=== PATIENT | female | born 1980 | race Caucasian/White ===

== ENCOUNTER 2022-12-04 15:09 | Observation (INO) | payer OTHER, SELFPAY ==
--- NOTE | ~2022-12-04 | MR_ITS ---
MRI of the abdomen: Clinical indication: Abnormal LFTs, common bile duct stone. Technique: Coronal SSFSE ARC, WATER:coronal LAVA-FLEX, Coronal 2D FIESTA FatSat, Axial SSFSE BH ARC, Axial 3D DualEcho BH, Axial SSFSE-IR, Axial DWI b=500, Axial 2D FIESTA FatSat, pre and dynamic postco ntrast Axial LAVA ARC, postcontrast Coronal In and Opposed phase LAVA FLEX. Following intravenous adm inistration of 15 cc MultiHance gadolinium, T1-weighted fat-sat imaging was performed in the axial an d coronal planes. Correlation made with CT scan dated 12/04/2022. Findings: Large gallstone is present. No gallbladder wall thickening. The common bile duct is normal in course and caliber. No filling defects are seen within the CBD. No evidence of intrahepatic biliar y ductal dilatation. The pancreatic duct is normal in size. Liver, spleen, pancreas, adrenals, and left kidney appear normal. Extensive parenchymal scarring of t he right kidney noted. The aorta and the paraaortic regions appear normal. No abnormal postcontrast enhancement seen. Impression: Cholelithiasis. No evidence of choledocholithiasis. No intrahepatic or extrahepatic biliary dilatatio n. No definite imaging evidence for acute cholecystitis. Extensive parenchymal scarring of the right kidney noted, as seen on recent CT. Reviewed, dictated and finalized at [facility] [place]. HAULER Impression: Cholelithiasis. No evidence of choledocholithiasis. No intrahepatic or extrahep atic biliary dilatation. No definite imaging evidence for acute cholecystitis. Extensive parenchymal scarring of the right kidney noted, as seen on recent CT.
--- NOTE | ~2022-12-04 | CT_ITS ---
CT Abdomen and Pelvis with contrast. History: Epigastric pain. Spiral CT of the abdomen and pelvis was performed after the administration of intravenous contrast. 1 00 cc of Omnipaque 350 was administered intravenously without complication. Dose reduction technique was used on this scan by utilizing automated exposure control and iterative reconstruction technique. The dose-length product (DLP) was 469.69 mGy-cm. Findings: Scans through the lung bases demonstrate mild atelectatic change. There is mild periportal edema. The liver, spleen, pancreas, adrenals and left kidney are otherwise w ithin normal limits. 2.5 cm gallstone present. There is extensive cortical scarring of the right kidn ey. No evidence of aortic aneurysm. No lymphadenopathy is seen. There is no evidence of bowel obstruction. There is no evidence to suggest acute appendicitis or dive rticulitis. Images through the pelvis were performed. Urinary bladder unremarkable. No pelvic mass seen. No ascit es. No ascites is seen. Impression: Cholelithiasis. Periportal edema, nonspecific. Reviewed, dictated and finalized at [facility]. [employer] AUD[employer] ADVISOR Impression: Cholelithiasis. Periportal edema, nonspecific.
[2022-12-04 15:12] VITALS: BP 135/79; PULSE 64; RESP 16; TEMP 36.6; O2SAT 100
--- NOTE | 2022-12-04 15:27 | ED.ABDPAIN ---
HPI - Abdominal Pain General Chief Complaint: Abdominal Pain <NADEEM Bai Last Filed: 12/04/22 16:36> Stated Complaint: abdominal pain <NADEEM Bai Last Filed: 12/04/22 16:36> Time Seen by Provider: 12/04/22 15:19 <NADEEM Bai Last Filed: 12/04/22 16:36> History of Present Illness HPI narrative: 42 year old previously healthy female here for evaluation of epigastric pain x 12 hours. Patient states that the pain has been present constantly, described as a burning sensation. Pain remains in her epigastric region and does not radiate. She attempted Tums and Pepto-Bismol without relief of her symptoms. Reports nausea but no vomiting, chest pain, shortness of breath, fevers or chills, diarrhea or constipation. She states that she usually eats a healthy diet but last night she had mini burgers and hot wings. No history of abdominal surgeries. She lives a very healthy active lifestyle, denies exertional component to pain. <NADEEM Bai Last Filed: 12/04/22 16:36> Related Data Allergies/Adverse Reactions: Allergies Allergy/AdvReac Type Severity Reaction Status Date / Time No Known Allergies Allergy Mild Unverified 12/04/22 15:19 <NADEEM Bai Last Filed: 12/04/22 16:36> Review of Systems Review of Systems: Gen.: Denies fevers or chills Eyes: Denies eye pain or visual change ENT: Denies congestion Respiratory: Denies shortness of breath or cough CV: Denies chest pain or palpitations GI: Reports abdominal pain and nausea. Denies emesis or diarrhea denies burning, urgency, frequency or hematuria Musculoskeletal: Denies back pain or muscle pain Neuro: Denies numbness, tingling, weakness or focal weakness Skin: Denies rash Except as documented, all other systems reviewed and negative <NADEEM Bai Last Filed: 12/04/22 16:36> Exam Narrative: APPEARANCE: Well appearing, no pain in distress, well-nourished. Head: Normocephalic and atraumatic. EYES: PERRLA/EOMI, conjunctivae clear NOSE: No nasal drainage EARS: External ear normal in appearance THROAT: Oropharynx is clear. Mucous membranes are moist. NECK: Supple. No adenopathy, no masses. RESPIRATORY: Airway patent, respirations nonlabored. Clear to auscultation bilaterally, no rales, rhonchi, wheezing. CARDIOVASCULAR: Regular rate and rhythm without murmurs, rubs, or gallops. ABDOMINAL: Slight tenderness to palpation in the epigastric region and right upper quadrant with no rebound tenderness or guarding. Normoactive bowel sounds. MUSCULOSKELETAL: Extremities are warm and well-perfused. Moves all extremities well. No edema. NEURO: Normal speech. No focal neurologic deficits. SKIN: Skin is warm and dry. No rashes. PSYCHIATRIC: Normal affect/mood. <Hali Fernandes PA-C - Last Filed: 12/04/22 16:36> Course CLIENT LIAISON/PA Physician Supervision For this patient encounter, I reviewed the CLIENT LIAISON or PA documentation, treatment plan, and medical decision making; and I had [id number] time with this patient. <Jacky Mcdaniels MD - Last Filed: 12/04/22 16:35> Vital Signs Vital signs: Vital Signs Temperature 36.6 C 12/04/22 15:12 Pulse Rate 64 12/04/22 15:12 Respiratory Rate 16 12/04/22 15:12 Blood Pressure 135/79 12/04/22 15:12 Pulse Oximetry 100 12/04/22 15:12 Oxygen Delivery Room Air 12/04/22 15:12 Temperature 36.6 C 12/04/22 15:12 Pulse Rate 64 12/04/22 15:12 Respiratory Rate 16 12/04/22 15:12 Blood Pressure 135/79 12/04/22 15:12 Pulse Oximetry 100 12/04/22 15:12 Oxygen Delivery Room Air 12/04/22 15:12 <Hali Fernandes PA-C - Last Filed: 12/04/22 16:36> Vital Signs Temperature 36.6 C 12/04/22 15:12 Pulse Rate 64 12/04/22 15:12 Respiratory Rate 16 12/04/22 15:12 Blood Pressure 135/79 12/04/22 15:12 Pulse Oximetry 100 12/04/22 15:12 Oxygen Delivery Room Air
[2022-12-04 15:29] LABS: Basophils Absolute Auto 0.1 K/mm3 (0.0-0.1); Basophils Percent Auto 0.6 % (0.2-1.2); Eosinophils Absolute Auto 0.1 K/mm3 (0-0.3); Eosinophils Percent Auto 0.6 % (0-4.4); Hematocrit 42.3 % (37.0-47.0); Immature Granulocyte Absolute 0.03 K/mm3 (0.00-0.031); Immature Granulocyte Percent A 0.3 % (0-0.5); Lymphocytes Absolute Auto 1.35 K/mm3 (0.9-3.2); Lymphocytes Percent Auto 14.3 % (18.3-44.2); Mean Corpuscular HGB Conc 33.1 g/dl (32-36); Mean Corpuscular Hemoglobin 30.8 pg (26-34); Mean Platelet Volume 10.1 fl (7.4-10.4); Monocytes Absolute Auto 0.8 K/mm3 (0.1-0.6); Monocytes Percent Auto 8.5 % (2.6-8.5); Neutrophils Absolute Auto 7.1 K/mm3 (1.3-6.7); Neutrophils Percent Auto 75.7 % (45.5-73.1); Platelet Count Result 316 k/mm3 (150-375); Red Blood Count 4.55 M/mm3 (4.2-5.4); Red Cell Distribution Width 12.6 % (11.5-14.5); White Blood Count 9.4 K/mm3 (4.5-10.0)
[2022-12-04] MEDS: LACTATED RINGERS 1,000 ML 999 ML IV CONT (15:34)
[2022-12-04] MEDS: ONDANSETRON INJ 4 MG/2 ML VIAL IV PUSH (15:35)
[2022-12-04] MEDS: FAMOTIDINE 20 MG/2 ML VIAL IV PUSH (15:35)
[2022-12-04 15:43] LABS: Alanine Aminotransferase 533 U/L (6-35); Albumin Level 4.8 g/dL (3.5-5.1); Alkaline Phosphatase 95 U/L (38-126); Anion Gap 5 mmol/L (8-16); Blood Urea Nitrogen 11 mg/dL (7-17); Calcium 9.4 mg/dL (8.4-10.2); Carbon Dioxide 28 mmol/L (22-30); Chloride 103 mmol/L (98-107); Estimated Glomerular Filt Rate > 60; Glucose 119 mg/dL (65-110); Lipase 170 U/L (23-300); Potassium 3.8 mmol/L (3.4-5.0); Sodium 136 mmol/L (137-145)
[2022-12-04 15:53] LABS: Aspartate Amino Transferase 1062 U/L (14-36)
[2022-12-04 15:57] LABS: Appearance Urine Slightly Cloudy (Clear); Bilirubin Urine 2+ (Negative); Blood Urine Negative (Negative); Color Urine Yellow (Yellow); Glucose Urine UA Negative (Negative); Ketones Urine Trace mg/dL (Negative); Leukocyte Esterase Ur 1+ LEU/UL (Negative); Nitrate Urine Negative (Negative); Protein Urine 1+ mg/dL (Negative); pH Urine 7.5 (5.0-9.0)
[2022-12-04 16:01] LABS: Bacteria Urine Trace /hpf; Mucus Urine Rare /lpf; Squamous Epithelial Cell Urine Many /hpf (Few)
[2022-12-04 16:13] LABS: Add Urine Microscopic? YES
[2022-12-04 16:44] LABS: Influenza A QL RT-PCR Negative (Negative); Influenza B QL RT-PCR Negative (Negative); SARS-CoV-2 RNA PCR Negative
[2022-12-04] MEDS: MORPHINE SULFATE (*CRX) 4 MG/ML INJ IV PUSH (16:50)
[2022-12-04 17:14] VITALS: BP 140/87; PULSE 67; RESP 18; O2SAT 100
[2022-12-04 17:22] VITALS: BP 139/86; PULSE 72; RESP 18; O2SAT 98
--- NOTE | 2022-12-04 18:08 | ADMGEN ---
This patient, Sharda Arnold, was admitted to [facility] Surg Room 315-02. Patient/family oriented to hospital policies and general routines including ID bracelet, bed and alarms, visiting hours, pain management, procedures, bathroom and other care routines, personal items, smoking policy, room service/diet, and visiting hours. Information on how to activate the Rapid Response Team has been discussed. Patient/Family are encouraged to report perceived risks to care and to ask questions if they do not understand what they are told or what they should do.
[2022-12-04] MEDS: LACTATED RINGERS 1,000 ML 150 ML IV CONT (18:17)
--- NOTE | 2022-12-04 18:43 | PM.IMHP ---
H&P: HPI History of Present Illness Date/Time: 12/04/22 18:43 Chief Complaint: Right upper quadrant and epigastric abdominal pain Narrative: Patient is an otherwise healthy 42-year-old female who presents with a 12 hr history of epigastric and right upper quadrant abdominal pain that started after ate chicken wings and other fatty foods. She denies radiation of the pain to her back or any nausea or vomiting. She has not had any abdominal bloating or loose stools after eating. She is not had pain like this in the past. Workup in the emergency room showed a normal white blood cell count and 9400 however her liver enzymes were elevated with a total bilirubin of 2.0 and elevated AST and ALT. CT scan of the abdomen and pelvis showed a distended gallbladder with some mild gallbladder wall thickening and a 2centimeter gallstone within the lower portion of the gallbladder. No evidence of common bile duct dilatation was noted. Review of Systems Review of Systems: The remainder of the review of systems to include constitutional, HEENT, cardiovascular, respiratory, GI, , integumentary, musculoskeletal, endocrine, immunologic, hematologic, psychiatric, and neurologic are all negative except for which is mentioned above in the HPI. [facility] Family History Family History Mother Hypertension Father Hypertension Social History Social History Smoking status: Never smoker Alcohol intake: current Drinks per week: 1 Substance use: never Lack of Transportation: No Lack of Food: Never True Current Housing: I Have Housing Concerned About Future Housing: No Difficulty Paying Gas/Electric Bills: No Difficulty Paying for Meds: No Currently Unemployed: No Education: High School Diploma/GED Difficulty w/ Childcare or Family Care: No Spiritual care concerns: No Meds Home Medications and Allergies Home Medications Medication Instructions Recorded Confirmed Type No Home Medications 12/04/22 12/04/22 History Allergies Allergy/AdvReac Type Severity Reaction Status Date / Time No Known Allergies Allergy Mild Unverified 12/04/22 15:19 Vital Signs Vital Signs - 24 hr 12/04/22 15:12 12/04/22 17:14 12/04/22 17:22 Temperature 36.6 C Pulse Rate 64 67 72 Respiratory Rate 16 18 18 Blood Pressure 135/79 140/87 139/86 Pulse Oximetry 100 100 98 Oxygen Delivery Room Air Room Air Exam Const: General: comfortable and no acute distress Other: Patient is sitting up in bed conversing with family. HENMT: Face/Nose/Sinus: Normal nares present Mouth: Yes moist mucous membranes Eyes: General: appearance normal, both eyes and all related structures Sclera: sclerae normal Pupils: Equal, round and reactive pupils present EOM: EOMs intact bilaterally Neck: Neck: supple and no JVD Resp: Effort & Inspection: normal respiratory effort Auscultation: clear to auscultation bilaterally Cardio: Rate: regular rate Rhythm: regular rhythm GI: Other: Abdomen is soft and nondistended. She has [id number] tenderness to deep palpation in the right upper quadrant and epigastric regions of the abdomen. No masses are appreciated and no ventral hernias are noted. No surgical scars are noted. Skin: General skin exam: normal color and no rashes or lesions noted Neuro: General: gait normal Speech: normal speech Motor exam (neuro): 5/5 motor strength present throughout Sensory Exam: normal sensation Extrem: General: normal to inspection Psych: Mental Status: mental status grossly normal Affect: normal affect H&P: Results Labs Labs: Short CBC 12/04/22 Range/Units 15:23 WBC 9.4 (4.5-10.0) K/mm3 Hgb 14.0 (12.0-15.0) g/dL Hct 42.3 (37.0-47.0) % Plt Count 316 (150-375) k/mm3 [facility] 12/04/22 15:23 Sodium 136 L Potassium 3.8 Chloride 103 Carbon Dioxide 28 BUN 11 Creatinine 0.80 Glucose 119 H Ca
[2022-12-04 22:00] VITALS: BP 143/70; PULSE 67; RESP 20; TEMP 36.7; O2SAT 99
[2022-12-05 05:51] VITALS: BP 103/63; PULSE 78; RESP 20; TEMP 36.3; O2SAT 98
[2022-12-05 08:06] LABS: Basophils Absolute Auto 0.1 K/mm3 (0.0-0.1); Basophils Percent Auto 1.2 % (0.2-1.2); Eosinophils Absolute Auto 0.1 K/mm3 (0-0.3); Eosinophils Percent Auto 2.9 % (0-4.4); Hematocrit 37.6 % (37.0-47.0); Hemoglobin 12.1 g/dL (12.0-15.0); Immature Granulocyte Absolute 0.01 K/mm3 (0.00-0.031); Immature Granulocyte Percent A 0.2 % (0-0.5); Lymphocytes Absolute Auto 1.46 K/mm3 (0.9-3.2); Lymphocytes Percent Auto 34.7 % (18.3-44.2); Mean Corpuscular HGB Conc 32.2 g/dl (32-36); Mean Corpuscular Hemoglobin 30.8 pg (26-34); Mean Corpuscular Volume 95.7 fl (80-100); Mean Platelet Volume 10.6 fl (7.4-10.4); Monocytes Absolute Auto 0.5 K/mm3 (0.1-0.6); Monocytes Percent Auto 11.4 % (2.6-8.5); Neutrophils Absolute Auto 2.1 K/mm3 (1.3-6.7); Neutrophils Percent Auto 49.6 % (45.5-73.1); Platelet Count Result 241 k/mm3 (150-375); Red Blood Count 3.93 M/mm3 (4.2-5.4); Red Cell Distribution Width 12.9 % (11.5-14.5); White Blood Count 4.2 K/mm3 (4.5-10.0)
[2022-12-05 08:34] LABS: Alanine Aminotransferase 503 U/L (6-35); Albumin Level 3.8 g/dL (3.5-5.1); Alkaline Phosphatase 86 U/L (38-126); Anion Gap 2 mmol/L (8-16); Aspartate Amino Transferase 521 U/L (14-36); Bilirubin,Total 3.4 mg/dL (0.2-1.3); Blood Urea Nitrogen 5 mg/dL (7-17); Calcium 8.4 mg/dL (8.4-10.2); Carbon Dioxide 30 mmol/L (22-30); Chloride 104 mmol/L (98-107); Estimated CRCL calculation 66 ml/min; Estimated Glomerular Filt Rate > 60; Glucose 107 mg/dL (65-110); Lipase 102 U/L (23-300); Potassium 3.6 mmol/L (3.4-5.0); Sodium 136 mmol/L (137-145)
--- NOTE | 2022-12-05 09:41 | PM.PNGS ---
Progress Note: A&P Assessment and Plan (1) Elevated liver enzymes: Code(s): R74.8 - Abnormal levels of other serum enzymes Status: Acute Assessment and Plan: Total bili has increased to 3.4 from 2.0. There is a possibility that she could have a retained common bile duct stone or has been recently passed a common duct stone. Will get an MRCP today to evaluate the common bile duct for possible retained stone. (2) Acute calculous cholecystitis: Code(s): K80.00 - Calculus of gallbladder with acute cholecystitis without obstruction Status: Acute Assessment and Plan: White blood cell count is down to 4000 and her abdominal pain is now minimal. She would need to have a laparoscopic cholecystectomy. Timing of surgery will depend on the results of the MRCP. For now continue on IV antibiotics. She can start on clear liquids later today after her MRCP. This was discussed with the patient and her family at the bedside and they understand and agree with the plan of care. Subjective Subjective Date/Time Seen: 12/05/22 09:41 Interval history: The patient feels better today. She has no pain right now. She has been afebrile and is hungry. Her liver enzymes have increased with a total bilirubin now having increased to 3.4 from 2.0 with continued elevation in her AST and ALT. White blood cell count has decreased down to 4000. He continues on IV antibiotics and has been NPO. Exam Const: General: comfortable and no acute distress Eyes: Sclera: sclerae normal Neck: Neck: supple and no JVD Resp: Effort & Inspection: normal respiratory effort Auscultation: clear to auscultation bilaterally Cardio: Rate: regular rate Rhythm: regular rhythm GI: Other: Abdomen is soft nondistended. Palpation of the epigastric and right upper quadrants reveals no tenderness. Exam is benign. Neuro: Speech: normal speech Sensory Exam: normal sensation Psych: Mental Status: mental status grossly normal Affect: normal affect Objective Data Vital Signs Vital Signs: Vital Signs - 24 hr 12/04/22 15:12 12/04/22 17:14 12/04/22 17:22 Temperature 36.6 C Pulse Rate 64 67 72 Respiratory Rate 16 18 18 Blood Pressure 135/79 140/87 139/86 Pulse Oximetry 100 100 98 Oxygen Delivery Room Air Room Air 12/04/22 22:00 12/05/22 05:51 Temperature 36.7 C 36.3 C L Pulse Rate 67 78 Respiratory Rate 20 20 Blood Pressure 143/70 H 103/63 Pulse Oximetry 99 98 Oxygen Delivery Intake/Output Intake/Output: Intake & Output 12/02/22 12/03/22 12/04/22 12/05/22 23:59 23:59 23:59 23:59 Intake Total 1050 550 Balance 1050 550 Meds/Results Medications: Active Medications Generic Name Dose Route Start Last Admin Trade Name Freq PRN Reason Stop Dose Admin Piperacillin/Tazobactam/Dextrose 3.375 gm in 50 mls @ 100 mls/hr 12/05/22 00:00 12/05/22 06:17 Zosyn 3.375 Gm/D5w 50ml Pm IVPB 100 mls/hr Q6H ANUM Administration Pantoprazole Sodium 40 mg/ 500 mls @ 50 mls/hr 12/04/22 18:55 12/05/22 06:20 Dextrose IV CONT 50 mls/hr .Q10H ANUM Administration Morphine Sulfate 4 mg 12/04/22 18:57 Morphine Sulfate (*Crx) 2 Mg/Ml Inj IV PUSH Q4H PRN abdominal pain Radiology Results: ITS Impressions Abdomen/Pelvis CT 12/04/22 16:12 Impression: Cholelithiasis. Periportal edema, nonspecific. Labs Labs: Laboratory Results - last 24 hr 12/04/22 12/04/22 12/04/22 15:23 15:23 15:32 WBC 9.4 RBC 4.55 Hgb 14.0 Hct 42.3 MCV 93.0 MCH 30.8 MCHC 33.1 RDW 12.6 Plt Count 316 MPV 10.1 Immature Gran % (Auto) 0.3 Neut % (Auto) 75.7 H Lymph % (Auto) 14.3 L [place] % (Auto) 8.5 Eos % (Auto) 0.6 Baso % (Auto) 0.6 Lymph # (Auto) 1.35 [place] # (Auto) 0.8 H Eos # (Auto) 0.1 Baso # (Auto) 0.1 Abs Immat Gran (auto) 0.03 Absolute Neuts (auto) 7.1 H Absolute Nucleated RBC 0.0
[2022-12-05 13:45] VITALS: BP 116/64; PULSE 66; RESP 20; TEMP 36.6; O2SAT 100
[2022-12-05 20:00] VITALS: PULSE 71; RESP 18; O2SAT 98
[2022-12-05 22:00] VITALS: BP 136/69; PULSE 71; RESP 18; TEMP 36.7; O2SAT 98
[2022-12-06] VITALS (12 sets, daily range): BP systolic 111–131; BP diastolic 49–79; PULSE 57–81; RESP 12–19; TEMP 35.5–36.8; O2SAT 97–100
[2022-12-06 06:33] LABS: Basophils Absolute Auto 0.1 K/mm3 (0.0-0.1); Basophils Percent Auto 0.8 % (0.2-1.2); Eosinophils Absolute Auto 0.2 K/mm3 (0-0.3); Eosinophils Percent Auto 2.6 % (0-4.4); Hemoglobin 12.6 g/dL (12.0-15.0); Immature Granulocyte Absolute 0.01 K/mm3 (0.00-0.031); Immature Granulocyte Percent A 0.2 % (0-0.5); Lymphocytes Absolute Auto 1.67 K/mm3 (0.9-3.2); Lymphocytes Percent Auto 27.2 % (18.3-44.2); Mean Corpuscular HGB Conc 32.3 g/dl (32-36); Mean Corpuscular Hemoglobin 31.3 pg (26-34); Mean Platelet Volume 10.6 fl (7.4-10.4); Monocytes Absolute Auto 0.6 K/mm3 (0.1-0.6); Monocytes Percent Auto 9.9 % (2.6-8.5); Neutrophils Absolute Auto 3.6 K/mm3 (1.3-6.7); Neutrophils Percent Auto 59.3 % (45.5-73.1); Platelet Count Result 257 k/mm3 (150-375); Red Blood Count 4.02 M/mm3 (4.2-5.4); Red Cell Distribution Width 12.7 % (11.5-14.5); White Blood Count 6.1 K/mm3 (4.5-10.0)
[2022-12-06 08:01] LABS: Alanine Aminotransferase 382 U/L (6-35); Albumin Level 3.9 g/dL (3.5-5.1); Alkaline Phosphatase 89 U/L (38-126); Anion Gap 3 mmol/L (8-16); Aspartate Amino Transferase 229 U/L (14-36); Bilirubin,Total 1.4 mg/dL (0.2-1.3); Blood Urea Nitrogen 5 mg/dL (7-17); Calcium 8.6 mg/dL (8.4-10.2); Carbon Dioxide 26 mmol/L (22-30); Chloride 105 mmol/L (98-107); Estimated CRCL calculation 73 ml/min; Estimated Glomerular Filt Rate > 60; Glucose 102 mg/dL (65-110); Potassium 4.2 mmol/L (3.4-5.0); Sodium 134 mmol/L (137-145)
--- NOTE | 2022-12-06 11:05 | WPDANESEPPF ---
Anes - Initial Pre Proc Eval Procedure: Operation Date: 12/06/22 12:00 Proposed Procedures p Laparoscopic Cholecystectomy,Possible Open - Óscar Martinez MD Date/Time: 12/06/22 11:05 Surgeon: Óscar Martinez MD Pre Op Diagnosis: Cholecystitis Patient Data Age: 42 Gender: F Height: 1.73 m Weight: 75 kg Last Vital Signs Temp 36.4 C L 12/06/22 10:59 Pulse 65 12/06/22 10:59 Resp 16 12/06/22 10:59 BP 128/77 12/06/22 10:59 Pulse Ox 100 12/06/22 10:59 O2 Del Method Room Air 12/06/22 10:59 Allergies Allergy/AdvReac Type Severity Reaction Status Date / Time No Known Allergies Allergy Mild Unverified 12/04/22 15:19 Home Medications Medication Instructions Recorded Confirmed Type No Home Medications 12/04/22 12/04/22 History Laboratory Tests 12/06/22 12/06/22 06:00 06:00 WBC 6.1 K/mm3 K/mm3 (4.5-10.0) RBC 4.02 M/mm3 L M/mm3 (4.2-5.4) Hgb 12.6 g/dL g/dL (12.0-15.0) Hct 39.0 % % (37.0-47.0) MCV 97.0 fl fl (80-100) MCH 31.3 pg pg (26-34) MCHC 32.3 g/dl g/dl (32-36) RDW 12.7 % % (11.5-14.5) Plt Count 257 k/mm3 k/mm3 (150-375) MPV 10.6 fl H fl (7.4-10.4) Immature Gran % (Auto) 0.2 % % (0-0.5) Neut % (Auto) 59.3 % % (45.5-73.1) Lymph % (Auto) 27.2 % % (18.3-44.2) [place] % (Auto) 9.9 % H % (2.6-8.5) Eos % (Auto) 2.6 % % (0-4.4) Baso % (Auto) 0.8 % % (0.2-1.2) Lymph # (Auto) 1.67 K/mm3 K/mm3 (0.9-3.2) [place] # (Auto) 0.6 K/mm3 K/mm3 (0.1-0.6) Eos # (Auto) 0.2 K/mm3 K/mm3 (0-0.3) Baso # (Auto) 0.1 K/mm3 K/mm3 (0.0-0.1) Abs Immat Gran (auto) 0.01 K/mm3 K/mm3 (0.00-0.031) Absolute Neuts (auto) 3.6 K/mm3 K/mm3 (1.3-6.7) Absolute Nucleated RBC 0.0 K/mm3 K/mm3 (0.0-0.012) Nucleated RBC % 0.0 % % (0.0-0.2) Sodium 134 mmol/L L mmol/L (137-145) Potassium 4.2 mmol/L mmol/L (3.4-5.0) Chloride 105 mmol/L mmol/L (98-107) Carbon Dioxide 26 mmol/L mmol/L (22-30) Anion Gap 3 mmol/L L mmol/L (8-16) BUN 5 mg/dL L mg/dL (7-17) Creatinine 0.90 mg/dL mg/dL (0.7-1.0) Estim Creat Clear Calc 73 ml/min ml/min Estimated GFR > 60 (59 - ) Glucose 102 mg/dL mg/dL (65-110) Calcium 8.6 mg/dL mg/dL (8.4-10.2) Total Bilirubin 1.4 mg/dL H mg/dL (0.2-1.3) AST 229 U/L H U/L (14-36) ALT 382 U/L H U/L (6-35) Alkaline Phosphatase 89 U/L U/L (38-126) Total Protein 7.0 g/dL g/dL (6.3-8.2) Albumin 3.9 g/dL g/dL (3.5-5.1) Patient hx anesthesia problems: none Family hx anesthesia problems: none Results Review: All pre-operative results and documents have been reviewed as part of the pre-operative evaluation. [facility] Family History Family History Mother Hypertension Father Hypertension Social History Social History Smoking status: Never smoker Alcohol intake: current Drinks per week: 1 Substance use: never Lack of Transportation: No Lack of Food: Never True Current Housing: I Have Housing Concerned About Future Housing: No Difficulty Paying Gas/Electric Bills: No Difficulty Paying for Meds: No Currently Unemployed: No Education: High School Diploma/GED Difficulty w/ Childcare or Family Care: No Spiritual care concerns: No Anes - Eval Final PreProcedure Day of Procedure 12/06/22 11:05 Patient weight: normal Heart: regular rate and rhythm Lungs: clear to auscultation Airway: Mallampati scale class II Neurological: alert and oriented Last oral intake: >/= 8 hours ASA classification: I Emergent: no Anesthetic plan: proceed Anesthesia type and monitoring: general ETT and standard monitoring Results Review: All pre
[2022-12-06] MEDS: LACTATED RINGERS 1,000 ML 30 ML IV CONT (11:47)
--- NOTE | 2022-12-06 12:24 | WPDHPUPDATE1 ---
History and Physical Update Update Date/Time: 12/06/22 12:24 History and Physical has been reviewed, including an updated exam of the patient. There are NO changes in the patient's condition. Risks, benefits, and alternatives have been discussed and questions answered. Patient agrees to proceed with procedure.
[2022-12-06] MEDS: BUPivacaine HCL 0.5% 10 ML AMP 20 ML INFILTRATE (12:50)
[2022-12-06] MEDS: LIDO 1%/EPINEPHRINE 1:100,000 20 ML VIAL INFILTRATE (12:53)
[2022-12-06] MEDS: KETOROLAC 30 MG/ML VIAL (*BKC) IV PUSH (13:18)
--- NOTE | 2022-12-06 13:47 | W.PM.PROC2 ---
Procedure Note - Detailed Date of Procedure 12/06/22 Pre-op Diagnosis Cholelithiasis, choledocholithiasis Post-op Diagnosis Same Procedure Performed Laparoscopic cholecystectomy Surgeon Óscar Martinez MD Scrubber Operator Sophie Beltran [facility] Anesthesia General Indications Patient is a 42-year-old female presented to the emergency room with severe epigastric abdominal pain 3 days ago. At that time she had a normal white blood cell count but had elevated liver enzymes. Imaging showed 2centimeter gallstone and some very mild edema of the gallbladder wall. The common bile duct at that time was normal. The day after admission her liver enzymes continued to rise and total bilirubin was 3.4. A MRCP was performed showing no evidence of retained common bile duct stone. Her liver enzymes have trended down and is likely that she passed a common bile duct stone. Findings Large 2 cm gallstones, minimal gallbladder wall edema. Description of Procedure After informed consent was obtained the patient brought to the operating room for she is placed in supine position and then placed under general endotracheal anesthesia. The abdomen was then prepped and draped in the usual sterile fashion. A time-out was then performed, correctly identifying the patient as well as procedure to be performed. She was already on scheduled IV antibiotics. I then proceeded to gain access into the abdomen placing a 5millimeter Optiview port in the left upper quadrant with a direct optical insertion. Once inside the abdomen, I insufflated to an adequate pneumoperitoneum of 15millimeters of mercury of CO2. A 5millimeter periumbilical trocar port was then placed under direct visualization. The laparoscope was switched over to the periumbilical trocar port and then looking into the upper portions the abdomen I placed a 10millimeter epigastric trocar port and 2 right lateral subcostal 5millimeter trocar ports all under direct visualization. The gallbladder was held with a laparoscopic grasper and elevated over the right half of the liver towards the right shoulder. The gallbladder wall was minimally thickened and there were no adhesions of the omentum and duodenum to the gallbladder wall. A 2nd laparoscopic grasper was then used to hold the gallbladder at the infundibulum. I then proceeded to strip down the visceral peritoneum off of the gallbladder until I identified the cystic duct. The cystic duct was then dissected out circumferentially. The cystic artery was identified and it was dissected out circumferentially as well. The posterior wall of the gallbladder at the infundibulum was dissected free of the liver until the critical view was obtained. At this point I then placed 2 clips proximal on the cystic duct and 2 clips distally high on the infundibulum gallbladder. The duct was then divided with Endo Bela. In a similar fashion the cystic artery was clipped and divided as well. The gallbladder was then resected off of the liver with electro cautery without spilling any bile or any gallstones. The gallbladder was then placed into an Endo-Catch bag and brought out through the epigastric port site. The gallbladder and contents were sent to pathology for examination. I then irrigated out the right upper quadrant of the abdomen and the gallbladder fossa with copious amounts of sterile saline solution. Hemostasis was excellent. I then aspirated the fluid from the right upper quadrant of the abdomen and from the pelvis. I then removed all the trocar ports under visualization and all port sites appeared hemostatic. I then allowed the abdomen to decompress. I irrigated out the port sites and they were all hemostatic. I then closed the epigastric 10millimeter trocar port fascia defect utilizing 0 Vicryl suture placed in a figure-eight fashion. The skin edges on the port sites were then approximated utilizing a running subcuticular 4 0 Monocryl suture. The incisions were then cleaned and then skin glue w
--- NOTE | 2022-12-06 14:02 | SUR.PHASEI ---
Simple mask removed at 1401.
[2022-12-06] MEDS: HYDROcodone/acetaminophen (*CRX) 5-325 MG TABLET 1 TAB PO ×2 (16:10→20:04)
[2022-12-06] MEDS: LACTATED RINGERS 1,000 ML 100 ML IV CONT (16:11)
--- NOTE | 2022-12-06 23:21 | PC.NURSE ---
On 12/06/2022 patient refused to receive I.V. fluids, patient is tolerating P.O. liquids well and charge nurse notified.
[2022-12-07] MEDS: HYDROcodone/acetaminophen (*CRX) 5-325 MG TABLET 1 TAB PO ×2 (03:45→08:52)
[2022-12-07 06:00] VITALS: BP 118/68; PULSE 61; RESP 14; TEMP 36.3; O2SAT 100
--- NOTE | 2022-12-07 10:14 | PM.DS ---
DS: Admitting Diagnosis Discharge Date 12/07/22 Admitting Diagnosis Acute calculous cholecystitis DS: Discharge Diagnosis Discharge Diagnosis (1) Acute calculous cholecystitis: Code(s): K80.00 - Calculus of gallbladder with acute cholecystitis without obstruction Status: Acute Assessment and Plan: 12/06/22 - Laparoscopic cholecystectomy - by Dr. Martinez DS: Summary Hospital Course Reason for hospitalization: This is a 42-year-old female who presents with a 12 hr history of epigastric and right upper quadrant abdominal pain that started after she ate chicken wings and other fatty foods.?Workup in the emergency room showed a normal white blood cell count of 9400, however her liver enzymes were elevated with a total bilirubin of 2.0 and elevated AST and ALT.? CT scan of the abdomen and pelvis showed a distended gallbladder with some mild gallbladder wall thickening and a 2 centimeter gallstone within the lower portion of the gallbladder.? No evidence of common bile duct dilatation was noted. She was admitted for surgical evaluation of acute cholecystitis. Hospital Course: The patient was admitted to the surgical floor and started on IV Zosyn for antibiotics. Labs were repeated the following morning and her total bilirubin went up to 3.4. MRCP ordered and showed cholelithiasis with no choledocholithiasis or biliary duct dilatation. Decision was then made to proceed with a laparoscopic cholecystectomy by Dr. Martinez yesterday. The surgery was straight forward and she had findings of large 2 cm gallstones and minimal gallbladder wall edema. She was sent back to the surgical floor after recovery and did well overnight. She was advanced to a low fat diet, which she is tolerating well. She denies any nausea, vomiting, bloating, or any other complaints. Her post-op pain is well controlled with the [place] as needed. LFTs trended down this morning. She is stable for discharge today and will have her follow-up with Dr. Martinez in 2 weeks in the office. Status at Discharge Functional status at discharge: independent ambulation Overall status at discharge: patient is progressing back to baseline Time Spent with Patient Time attestation: Total time spent providing and/or coordinating discharge services: Time spent: Less than 30 minutes Exam Const: General: comfortable, no acute distress and awake Orientation/consciousness: patient oriented x3 Resp: Effort & Inspection: normal respiratory effort Auscultation: clear to auscultation bilaterally Cardio: Rate: regular rate Rhythm: regular rhythm GI: Inspection: non-distended and incision (incisions dry and intact) GI Palp: Yes Soft to palpation, Yes Tenderness to palpation present (GI) (expected incisional tenderness) and No Guarding due to palpation present (GI) Auscultation: normal bowel sounds Neuro: General: moves all extremities and no focal motor deficits Extrem: General: no calf tenderness and no edema Psych: Mental Status: mental status grossly normal Insight: Good insight present (Psych) DS: Data Data Completed and Pending Pending studies at discharge: Pending at discharge 12/06/22 13:12 Surgical [PTH] Routine Procedures/Treatments: Procedures Operation Date: 12/06/22 12:00 Actual Procedure Side Surgeon p Laparoscopic Cholecystectomy Not Applicable Óscar Martinez MD Imaging Radiologist's impression: ITS Impressions Abdomen/Pelvis CT 12/04/22 16:12 Impression: Cholelithiasis. Periportal edema, nonspecific. MRCP 12/05/22 14:44 Impression: Cholelithiasis. No evidence of choledocholithiasis. No intrahepatic or extrahepatic biliary dilatation. No definite imaging evidence for acute cholecystitis. Extensive parenchymal scarring of the right kidney noted, as seen on recent CT. Discharge Plan Discharge Attending physician on discharge: Óscar Martinez Consulting providers: Jose Oakley
== END 2022-12-07 11:29 | disposition home or self-care (01) ==
LOC: ANHED 16:34 → ANH3MEDSUR 17:16
PROVIDERS: Physician Assistant; Admitting Provider Surgery; Emergency Provider Emergency Medicine; Visit Provider Surgery
PROC: 0FT44ZZ Resection of Gallbladder, Percutaneous Endoscopic Approach (ICD-10-PCS; CPT 47562; principal; 2022-12-06 12:00)
DX: K80.10 Calculus of gallbladder with chronic cholecystitis without obstruction (principal); K76.89 Other specified diseases of liver; R10.13 Epigastric pain; R74.01 Elevation of levels of liver transaminase levels; R11.0 Nausea; Z20.822 Contact with and (suspected) exposure to COVID-19; F10.90 Alcohol use, unspecified, uncomplicated
CPT/HCPCS: 47562; 36415; 74177; 74183; 76376; 80053; 81001; 81025; 83690; 85025; 86850; 86900; 86901; 87086; 87088; 87636; 88304; 96361; 96365; 96366; 96367; 96375; 99285; A9270; A9577; C1713; C9113; G0378; J0330; J1100; J1885; J2250; J2270; J2405; J2543; J2704; J2710; J3010; J7060; J7120; Q9967

== ENCOUNTER 2024-08-31 09:57 | Emergency (ER) | payer OTHER, SELFPAY ==
--- NOTE | ~2024-08-31 | XR_ITS ---
EXAMINATION: XR chest 2V DATE: 08/31/2024 10:19 INDICATION: Cough. Congestion. TECHNIQUE: Frontal and lateral views of the chest were obtained. COMPARISON: CT abdomen and pelvis 12/04/2022 FINDINGS: There is no pneumonia, pleural effusion, or pneumothorax. The heart size is normal. Surgica l clips in the right upper quadrant are likely from cholecystectomy. IMPRESSION: 1. No acute cardiopulmonary disease. Reviewed, dictated and finalized at location B.
--- NOTE | 2024-08-31 10:03 | ED_ITS ---
HPI - URI/Sore Throat General Chief Complaint: Upper Respiratory Infection Stated Complaint: SOB Time Seen by Provider: 08/31/24 10:06 Source: patient, RN notes reviewed and old records reviewed Mode of arrival: ambulatory Limitations: no limitations History of Present Illness HPI Narrative: 44-year-old female presents to the [facility] with complaints of Cough/ congeston x 5-6 days. has taken mucinex Onset (ago): day(s) (5-6) Related Data Allergies Allergy/AdvReac Type Severity Reaction Status Date / Time No Known Allergies Allergy Mild Verified 08/31/24 10:02 Review of Systems Review of Systems: All systems reviewed & are unremarkable except as noted in HPI and below Constitutional: Constitutional: Reports no additional constitutional complaints ENT: Reports as per HPI Cardiovascular: Cardiovascular: Reports no additional cardiovascular complaints, Denies chest pain and Denies dyspnea Respiratory: Respiratory: Reports as per HPI, Reports chest congestion, Reports cough and Reports dyspnea Gastrointestinal: Gastrointestinal: Reports no additional gastrointestinal complaints, Denies abdominal pain, Denies nausea and Denies vomiting Musculoskeletal: Musculoskeletal: Reports no additional musculoskeletal complaints Integumentary/Breasts: Skin/Breast: Reports system reviewed and no additional complaints, except as docu PMFSH Surgical History Surgical History S/P laparoscopic cholecystectomy 12/06/22 Family History Family History Mother Hypertension Father Hypertension Social History Social History Smoking status: Never smoker Alcohol intake: current Drinks per week: 1 Substance use: never Lack of Transportation: No Lack of Food: Never True Current Housing: I Have Housing Concerned About Future Housing: No Difficulty Paying Gas/Electric Bills: No Difficulty Paying for Meds: No Currently Unemployed: No Education: High School Diploma/GED Difficulty w/ Childcare or Family Care: No Spiritual care concerns: No Comments At the time of my signature, I reviewed and agree with the nursing past medical, surgical, social, and family history. There is no relevant family history pertinent to the patient complaint. Exam Const: General: cooperative, healthy appearing, comfortable, no acute distress, well developed, alert and well nourished Nutritional Appearance: well nourished Orientation/consciousness: patient oriented x3 Limitations: no limitations HENMT: Head: normal to inspection Ears: hearing grossly normal bilaterally, external ears normal, EAC's normal, mastoids normal, no periauricular adenopathy and TM abnormal with fluid behind the TM bilateral; not erythematous Face/Nose/Sinus: Normal external nose present, normal facial exam and face symmetric Face and sinus: normal facial exam and face symmetric Mouth: Yes Normal oral and palatal mucosa present, Yes lip normal and Yes tongue normal Throat: posterior oropharynx normal, tonsils normal, uvula midline, postnasal drainage and no uvular edema Eyes: General: appearance normal, both eyes and all related structures Alignment and Position: alignment normal Periorbital: periorbital findings normal Neck: Neck: normal visual inspection, full ROM, no lymphadenopathy and no meningeal signs Chest: Chest palpation & inspection: normal inspection of the chest Resp: Effort & Inspection: normal respiratory effort and able to speak in complete sentences Auscultation: clear to auscultation bilaterally, no crackles, no rales, no rhonchi, no wheezes and diminished lung sounds on the right in the lower lung [place] Cardio: Rate: regular rate Skin: General skin exam: normal color and no rashes or lesions noted Lesions: no lesions Rashes: no rashes Wounds: no wounds Neuro: General: patient oriented x3, gait normal, tone normal, moves all extremities and no meningeal signs Cognition (Neuro): normal cognition Speech: normal speech Gait exam (Neuro): Normal gait present Extrem: General: normal to inspection, full ROM, capillary refill normal and normal gait Psych: Appearance: grossly normal and well kempt Mental Status: mental status grossly normal Speech and movement: Normal speech and movement present and Clear speech present Affect: normal affect Attitude: cooperative Course Course Level of Care: Express Care Visit Vital Signs Vital signs: Vital Signs Temperature 97.1 F L 08/31/24 10:06 Pulse Rate 62 08/31/24 10:06 Respiratory Rate 16 08/31/24 10:06 Blood Pressure 132/73 08/31/24 10:06 Pulse Oximetry 100 08/31/24 10:06 Oxygen Delivery Room Air 08/31/24 10:06 Temperature 97.1 F L 08/31/24 10:06 Pulse Rate 62 08/31/24 10:06 Respiratory Rate 16 08/31/24 10:06 Blood Pressure 132/73 08/31/24 10:06 Pulse Oximetry 100 08/31/24 10:06 Oxygen Delivery Room Air 08/31/24 10:06 Reviewed MDM - URI/Sore Throat MDM Narrative Medical decision making narrative: Patient sitting comfortably in exam room. Nontoxic, vitals stable. Patient in no acute distress Patient presents with 5-6 day history of a cough, URI symptoms X-ray negative acute Patient appropriate for outpatient treatment and follow-up of viral URI symptoms, bronchitis Discharge instructions reviewed with patient, as well as provided in writing per nursing staff. The instructions also include specific and strict return/GO TO THE ER as well as f/u information. All questions have been answered, and the patient deny any further questions with discharge and discharge plan. Some parts of this dictation were generated by voice recognition software and may contain typographical and/or grammatical inaccuracies. Differential Diagnosis Differential diagnosis: Likely upper respiratory infection, otitis media, sinusitis, viral infection and bronchitis Critical Care Time Critical Care Time Critical Care Time: No Discharge Plan Discharge Clinical Impression: Bronchitis Acute serous otitis media, bilateral Qualifiers: Recurrence: not specified as recurrent Qualified Code(s): H65.03 - Acute serous otitis media, bilateral Patient Disposition: Home, Self-Care Condition: Stable Instructions: Antibiotic Form, Acute Bronchitis (ED), Fluid In The Ear (Serous Otitis Media) (ED) Additional Instructions: -Alternate Tylenol and Motrin per package directions for fever or pain. -Antihistamine medication such as Benadryl at night and Zyrtec/Claritin/Jenelle during the day can help improve symptoms. -doing daily nasal irrigations can help relieve pressure your sinuses. Things like a Neti pot -Use Flonase twice a day for 5 days then daily to help reduce the inflammation and dry up your sinuses. -You can also use Sudafed or Mucinex. Be sure to drink plenty of water with these medications at least 8 ounces with every dose and it is important to drink 8 to 10 glasses of water per day. Water is a natural decongestant -Eat and drink things that are easy to swallow, like tea or soup, or popsicles. -Oral rinses such as: Salt water gargles and/or may use topical anesthetic (eg. Chloraseptic spray) or lozenges to relieve dryness or throat pain). -Frequent hand washing or hand evening sitter is one of the best ways to prevent spread of infection. -Using a vaporizer or humidifier at night will also help thin secretions and help with coughing up phlegm. -Follow up with primary care provider in 3-5 days if condition is not improving - For new or worsening symptoms go directly to the nearest ER Patient Language: Ken[place] Prescriptions: New prednisone 50 mg tablet 50 mg PO DAILY Qty: 5 0RF Follow-up/Referrals: Giorgio Leon DO [Physician] - PHYSICIAN,MELTER CLERK [Primary Care Provider] - Stand Alone Forms: Work/School Release IP Time of Disposition: 10:26
[2024-08-31 10:06] VITALS: BP 132/73; PULSE 62; RESP 16; TEMP 36.2; O2SAT 100
== END 2024-08-31 10:34 | disposition home or self-care (01) ==
PROVIDERS: Emergency Provider Nurse Practitioner
DX: J40 Bronchitis, not specified as acute or chronic (principal); H65.03 Acute serous otitis media, bilateral
CPT/HCPCS: 71046; 99213; G0463